=== PATIENT | female | born 1980 | race Caucasian/White ===

== ENCOUNTER → 2019-04-28 | Outpatient (CLI) | payer OTHER ==
[2019-04-28 10:39] LABS: INR 0.9 (<1.2); Prothrombin Time 10.2 sec (9.0-12.0)
[2019-04-28 17:32] LABS: ALT 58 U/L (8-44); AST 41 U/L (13-35); Alkaline Phosphatase 65 U/L (41-126); Bilirubin, Conjugated <0.20 mg/dL (0.20-0.40); Globulin 2.5 g/dL (1.6-3.3); Total Bilirubin 0.3 mg/dL (0.3-1.2)
[2019-04-28 18:05] LABS: Iron Saturation 16.47 (12.00-45.00); Protein, Total 6.9 g/dL (6.2-8.2)
[2019-04-29 10:12] LABS: Albumin 3.99 g/dL (3.80-4.90); Gamma Globulin 1.31 g/dL (0.70-1.50)
[2019-04-29 14:08] LABS: Ceruloplasmin 27.1 mg/dL (20.0-60.0)
== END | disposition home or self-care (01) ==
LOC: LABWHC1 10:16
PROVIDERS: ATTEND Nurse Practitioner
DX: R74.8 Abnormal levels of other serum enzymes (principal)
CPT/HCPCS: 36415; 80076; 82103; 82390; 82728; 83516; 83540; 83550; 84165; 85610; 86038

== ENCOUNTER → 2019-05-11 | Outpatient (CLI) | payer OTHER ==
--- NOTE | 2019-05-11 12:10 | US ---
EXAMINATION TYPE: US abdomen limited DATE OF EXAM: 05/11/2019 COMPARISON: NONE CLINICAL HISTORY: 39-year-old female R74.8 abnormal level of other serum enzymes. Elevated liver enzy mes, patient states no other symptoms. TECHNIQUE: Multiple sonographic images of the right upper quadrant are obtained. FINDINGS: EXAM MEASUREMENTS: Liver Length: 15.0 cm Gallbladder Wall: 0.2 cm CBD: 0.3 cm Right Kidney: 10.7 x 4.8 x 4.7 cm Pancreas: Suboptimal visualization secondary to overlying bowel gas. Liver: No focal lesion seen. Overall homogeneous appearance. Gallbladder: wnl Evidence for sonographic Martell's sign: no CBD: visualized portions wnl, limited by overlying bowel gas Right Kidney: wnl IMPRESSION: Suboptimal visualization of the pancreas. Otherwise, unremarkable sonographic examination right upper quadrant.
== END | disposition home or self-care (01) ==
LOC: RADUSWWP 09:35
PROVIDERS: ATTEND Internal Medicine Gastroenterology
DX: R74.8 Abnormal levels of other serum enzymes (principal)
CPT/HCPCS: 76705

== ENCOUNTER → 2019-07-09 | Outpatient (CLI) | payer OTHER ==
--- NOTE | 2019-07-09 10:01 | US ---
EXAMINATION TYPE: US thyroid st tissue head/neck DATE OF EXAM: 07/09/2019 COMPARISON: NONE CLINICAL HISTORY: E03.9 HYPOTHYROIDISM,E06.3 AUTOIMMUNE THYROIDITIS. Patient on thyroid meds. GLAND SIZE: Right Lobe: 5.4 x 1.3 x 1.3 cm Overall Parenchyma: heterogenous Left Lobe: 6.1 x 1.7 x 1.6 cm Overall Parenchyma: heterogeneous Isthmus Thickness: 0.6 cm NODULES RIGHT: # of nodules measured on right: 0 LEFT: # of nodules measured on left: 0 ISTHMUS: # of nodules measured in the isthmus: 0 Bilateral neck scanned, no evidence of lymphadenopathy. Heterogeneous texture overall. IMPRESSION: Nonspecific. Diffuse glandular heterogeneity without distinct nodule. Correlate with thyroid function testing and physical exam findings.
== END | disposition home or self-care (01) ==
LOC: RADUSWWP 08:50
PROVIDERS: ATTEND Family Medicine
DX: E06.3 Autoimmune thyroiditis (principal)
CPT/HCPCS: 76536

== ENCOUNTER → 2020-06-06 | Outpatient (CLI) | payer OTHER ==
[2020-06-06 13:23] VITALS: BP 114/73; PULSE 88; RESP 18; TEMP 98.4; BMI 33.0
--- NOTE | 2020-06-06 14:05 | P.HPBAR ---
Bariatric H&P - History & Physicial H&P Date: 06/06/20 History & Physicial: Visit/CC: initial visit; possible lap band Patient initial contact: Initial weight: Initial weight in pounds: Height: 5 ft Initial BMI: Last weight: Current weight: 82.1 kg Current weight in pounds: 181.00 Current BMI: 35 [place] body weight (based on NIH guidelines): 49.895 kg Excess body weight loss: The patient is a 40 year-old F who presents for Bariatric Assessment. Patient presents today for initial consultation. She is interesting to having a lap band performed. She has had issues with obesity most relief. Past Medical History Past Medical History: GERD/Reflux, Thyroid Disorder History of Any Multi-Drug Resistant Organisms: None Reported Additional Past Surgical History / Comment(s): (X2); PANNI 2016; breast aggumentation 2016 Past Anesthesia/Blood Transfusion Reactions: No Reported Reaction, Motion Sickness Past Psychological History: Anxiety Smoking Status: Never smoker Surgical - Exam Vital Signs Temp Pulse Resp BP 98.4 F 88 18 114/73 06/06/20 13:11 06/06/20 13:11 06/06/20 13:11 06/06/20 13:11 - General well developed, well nourished, no distress - Eyes PERRL - ENT normal pinna - Neck no masses - Respiratory normal expansion - Cardiovascular Rhythm: regular - Abdomen Abdomen: soft, non tender Bariatric Assessment & Plan Plan: RBC. Patient be scheduled for EGD. She'll follow-up after this has been performed. Once her insurance authorization quadrant of the neck she'll be scheduled for LAP-BAND procedure. Bariatric Checklist Checklist: Plan: Checklist: EGD: 1. Hiatal hernia: 2. H. Pylori: HgbA1c: Vitamin D: Smoking: Primary care physician referral: Dr. Martinez Psychiatry clearance: Cardiology clearance: Sleep study: Diet journal: VTE risk score: VTE risk level: Rehab needs at discharge:
[2020-06-07 01:53] LABS: Folate, Serum 16.8 ng/mL
== END | disposition home or self-care (01) ==
LOC: BARWHC3 12:58
PROVIDERS: ATTEND Surgery
DX: Z46.51 Encounter for fitting and adjustment of gastric lap band (principal); Z98.84 Bariatric surgery status
CPT/HCPCS: 82607; 82746; 84425; 93005; 99211

== ENCOUNTER 2020-07-22 09:05 | Day surgery (SDC) | payer OTHER ==
[2020-07-19 10:33] VITALS: BMI 33.3
[~2020-07-22 09:05] MED LIST: LACTATED RINGERS 1,000 ML IV SCH; LIDOCAINE 1% (10MG/ML) FOR IV START INTRADERMA PRN
[2020-07-22 09:51] VITALS: RESP 16; TEMP 97
[2020-07-22] MEDS ORDERED: PROPOFOL 10 MG/ML 20 ML VIAL IV ONE (09:55)
[2020-07-22] MEDS ORDERED: LIDOCAINE 1% INJ 10MG/ML (20 ML MDV) ONE (09:55)
--- NOTE | 2020-07-22 09:57 | P.GSHP ---
History of Present Illness H&P Date: 07/22/20 Chief Complaint: GERD, morbid obesity This a 40-year-old female who presents today for EGD. She is undergoing workup for bariatric surgery. She's had issues with GERD. Past Medical History Past Medical History: GERD/Reflux, Thyroid Disorder History of Any Multi-Drug Resistant Organisms: None Reported Past Surgical History: Breast Surgery, Section Additional Past Surgical History / Comment(s): (X2); TUMMY TUCK 2016; breast aggumentation 2016 Past Anesthesia/Blood Transfusion Reactions: No Reported Reaction, Motion Sickness Smoking Status: Never smoker - Past Family History Mother Family Medical History: No Reported History Medications and Allergies Home Medications Medication Instructions Recorded Confirmed Type Escitalopram [Lexapro] 10 mg PO DAILY 06/06/20 07/19/20 History Levothyroxine Sodium [Levoxyl] 150 mcg PO DAILY 06/06/20 07/19/20 History Loratadine [Claritin] 10 mg PO DAILY 06/06/20 07/19/20 History Allergies Allergy/AdvReac Type Severity Reaction Status Date / Time No Known Allergies Allergy Verified 07/22/20 09:36 Surgical - Exam Vital Signs Temp Pulse Resp BP Pulse Ox 97.0 F L 76 16 110/71 98 07/22/20 09:30 07/22/20 09:30 07/22/20 09:30 07/22/20 09:30 07/22/20 09:30 - General well developed, well nourished, no distress - Eyes PERRL - ENT normal pinna - Neck no masses - Respiratory normal expansion - Cardiovascular Rhythm: regular - Abdomen Abdomen: soft, non tender Assessment and Plan Assessment: Morbid Obesity GERD. We'll perform EGD.
--- NOTE | 2020-07-22 10:05 | P.OP ---
Date of Procedure: 07/22/20 Preoperative Diagnosis: Morbid obesity . GERD Postoperative Diagnosis: Antral gastritis Procedure(s) Performed: EGD Anesthesia: MAC Surgeon: Jordi Tse Pathology: other (Antrum) Condition: stable Disposition: PACU Description of Procedure: The patient's placed on the endoscopy table in the lateral position. She received IV sedation. The gastroscope placed oropharynx and passed into the esophagus into the stomach. Scope was then placed through the pylorus. First and second portion of the duodenum appeared normal. Scope was then brought back the antrum and this was mildly inflamed. A biopsies performed. The scope was then retroflexed and the remainder of the stomach appeared normal. The GE junction was at 47 is. The distal esophagus appeared normal. The proximal esophagus appeared normal. Scope was withdrawn for patient.
[2020-07-22 10:30] VITALS: BP 102/71; PULSE 69
== END 2020-07-22 10:49 | disposition home or self-care (01) ==
LOC: ORWHC2ENDO 09:05
PROVIDERS: ATTEND Surgery
DX: K29.50 Unspecified chronic gastritis without bleeding (principal); K21.9 Gastro-esophageal reflux disease without esophagitis; E66.01 Morbid (severe) obesity due to excess calories; Z68.34 Body mass index [BMI] 34.0-34.9, adult; E07.9 Disorder of thyroid, unspecified; Z98.891 History of uterine scar from previous surgery; Z98.890 Other specified postprocedural states; Z79.890 Hormone replacement therapy; Z79.899 Other long term (current) drug therapy
CPT/HCPCS: 81025; 88305; 43239; J2001; J2704

== ENCOUNTER → 2020-10-10 | Outpatient (CLI) | payer OTHER ==
[2020-10-10 09:38] VITALS: BMI 37.2
== END | disposition home or self-care (01) ==
LOC: BARWHC3 08:56
PROVIDERS: ATTEND Surgery
DX: E66.01 Morbid (severe) obesity due to excess calories (principal); Z71.3 Dietary counseling and surveillance; Z68.37 Body mass index [BMI] 37.0-37.9, adult
CPT/HCPCS: 97804

== ENCOUNTER → 2020-10-24 | Outpatient (CLI) | payer OTHER ==
--- NOTE | 2020-10-24 15:42 | P.HPBAR ---
Bariatric H&P - History & Physicial H&P Date: 10/24/20 History & Physicial: Visit/CC: presurgical visit Patient initial contact: Initial weight: Initial weight in pounds: Height: 5 ft 0.5 in Initial BMI: Last weight: Current weight: 87.997 kg Current weight in pounds: 194.00 Current BMI: 37.3 [place] body weight (based on NIH guidelines): 46.493 kg Excess body weight loss: The patient is a 40 year-old F who presents for Bariatric Assessment. Patient presents today for presurgical consultation. Patient will be authorized for LAP-BAND procedure. Her BMI is 38. Past Medical History Past Medical History: GERD/Reflux, Thyroid Disorder History of Any Multi-Drug Resistant Organisms: None Reported Past Surgical History: Breast Surgery, Section Additional Past Surgical History / Comment(s): (X2); TUMMY TUCK 2015; breast aggumentation 2015 Past Anesthesia/Blood Transfusion Reactions: No Reported Reaction, Motion Sickn ess Past Psychological History: Anxiety Smoking Status: Never smoker Past Alcohol Use History: None Reported Past Drug Use History: None Reported - Past Family History Mother Family Medical History: No Reported History Surgical - Exam Vital Signs Temp Pulse Resp BP 98 F 96 18 109/70 10/24/20 13:16 10/24/20 13:16 10/24/20 13:16 10/24/20 13:16 - General well developed, well nourished - Eyes PERRL - ENT normal pinna - Neck no masses - Respiratory normal expansion - Cardiovascular Rhythm: regular - Abdomen Abdomen: soft, non tender Bariatric Assessment & Plan Plan: Morbid obesity patient will be off service for LAP-BAND procedure. Bariatric Checklist Checklist: Plan: Checklist: EGD: 1. Hiatal hernia: 2. H. Pylori: HgbA1c: Vitamin D: Smoking: Primary care physician referral: Dr. Martinez Psychiatry clearance: Cardiology clearance: Sleep study: Diet journal: VTE risk score: VTE risk level: Rehab needs at discharge:
== END | disposition home or self-care (01) ==
CPT/HCPCS: 99211

== ENCOUNTER → 2021-01-18 | Outpatient (CLI) | payer OTHER ==
--- NOTE | 2021-01-18 17:13 | CONS ---
CONSULTATION DATE OF SERVICE: 40-year-old lady has been evaluated in the sleep center for possible obstructive sleep apnea-hypopnea syndrome. HISTORY OF PRESENT ILLNESS/SLEEP WAKE EVALUATION: SLEEP SCHEDULE: Patient's usual sleep schedule from midnight until 6 a.m. FALLING ASLEEP: She does have problems with falling asleep. She has a TV set in bedroom. DURING SLEEP: She usually sleeps on the back position. According to her , she has loud snoring and witnessed episodes of stopped breathing during sleep. Positive history of sleep talking, sweating, panic attacks. She wakes up from sleep 2 times with nocturia. Positive history of grinding teeth. DURING THE DAY/SLEEP WAKE EVALUATION: During the day, patient feels sleepiness has problems with concentration irritability, depression and anxiety. [place] Sleepiness Scale significantly increased to 15. No history of hypnagogic hallucinations, sleep paralysis or cataplexy. PAST MEDICAL HISTORY: Positive for headaches, sinus problems, allergy, acid reflux, hypothyroidism, anxiety. PAST SURGICAL HISTORY: Rhinoplasty, sinuses surgery. MEDICATIONS: Synthroid 175 mcg once a day, Kate over the counter, Lexapro 10 mg once a day. SOCIAL HISTORY: Negative for smoking or using alcohol. FAMILY HISTORY: Positive for sleep apnea. PHYSICAL EXAMINATION: GENERAL: A 40-year-old lady without distress. BP 119/82, HR 82, RR 12, height 5 feet 2-1/2 inches, weight 191.4. Body mass index 34.3, temperature 97.6. Oxygen saturation at room air 99%. HEENT: PERRLA, EOMI. Oropharynx low position of soft palate. Mallampati 3. NECK: 14.5 inches in circumference. Neck supple, no JVD. Thyroid is not palpable. LUNGS: Clear to percussion and to auscultation. Good air exchange. No wheezing or rhonchi. HEART: S1, S2 regular. No murmurs, gallops, or rubs. ABDOMEN: Slightly obese. Soft and nontender. Bowel sounds are present. No organomegaly appreciated. EXTREMITIES: No clubbing or cyanosis. COMPUTER AIDED DESIGN OPERATOR: Awake, alert, and oriented X3. Cranial nerves 2 to 7 intact. There is no fasciculation or atrophy. noted. No focal deficits observed. IMPRESSION: 1. Loud snoring, witnessed episodes of stopped breathing during sleep, multiple awakenings from sleep, low position of soft palate, Mallampati 3, excessive daytime sleepiness. [place] Sleepiness Scale is 15. Obstructive sleep apnea-hypopnea syndrome. 2. Obesity, BMI 34.3. 3. Headaches. 4. History of sinus problems, status post sinus surgery. 5. Status post rhinoplasty. 6. Acid reflux. 7. Hypothyroidism. 8. Allergies. 9. History of anxiety. 10.Status post . PLAN: 1. Polysomnography for evaluation of patient's breathing during sleep. 2. Following plan after reviewing results of sleep study. 3. Watching and losing weight. 4. Sleep hygiene with regular time in bed for 7-1/2 or 8 hours. 5. No driving if feeling sleepiness. 6. I will see the patient for follow up visit to explain results of testing and following plan. Thank you very much for referring this patient for consultation. Sincerely, Enrique Vargas MD, PhD, FAASM Diplomat of [place] [employer] [place] [employer] [facility] [place] MMODL / ANDRZEJN: [id number] /
== END ==
LOC: SLEEP 11:19
PROVIDERS: ATTEND Internal Medicine
DX: G47.33 Obstructive sleep apnea (adult) (pediatric) (principal); E66.9 Obesity, unspecified; R51.9 Headache, unspecified; K21.9 Gastro-esophageal reflux disease without esophagitis; E03.9 Hypothyroidism, unspecified; F41.9 Anxiety disorder, unspecified; Z68.34 Body mass index [BMI] 34.0-34.9, adult; T78.40XA Allergy, unspecified, initial encounter; Z98.890 Other specified postprocedural states; Z87.09 Personal history of other diseases of the respiratory system; Z79.899 Other long term (current) drug therapy
CPT/HCPCS: 99211

== ENCOUNTER → 2021-03-20 | Outpatient (CLI) | payer BC, OTHER ==
[2021-03-20 13:59] VITALS: BP 117/86; PULSE 93; RESP 18; TEMP 98.3; BMI 38.0
--- NOTE | 2021-03-20 15:01 | P.HPBAR ---
Bariatric H&P - History & Physicial H&P Date: 03/20/21 History & Physicial: Visit/CC: presurgical / follow up Patient initial contact: Initial weight: Initial weight in pounds: Height: 5 ft 0.5 in Initial BMI: Last weight: Current weight: 89.811 kg Current weight in pounds: 198.00 Current BMI: 38.0 [place] body weight (based on NIH guidelines): 46.493 kg Excess body weight loss: The patient is a 41 year-old F who presents for Bariatric Assessment. She presents today for presurgical consultation. She is scheduled for LAP-BAND next week. She has Percent band. She is morbidly obese. BMI. His 38.. Past Medical History Past Medical History: GERD/Reflux, Thyroid Disorder History of Any Multi-Drug Resistant Organisms: None Reported Past Surgical History: Breast Surgery, Section Additional Past Surgical History / Comment(s): (X2); TUMMY TUCK 2015; breast aggumentation 2015 Past Anesthesia/Blood Transfusion Reactions: No Reported Reaction, Motion Sickness Smoking Status: Never smoker - Past Family History Mother Family Medical History: No Reported History Surgical - Exam Vital Signs Temp Pulse Resp BP 98.3 F 93 18 117/86 03/20/21 13:56 03/20/21 13:56 03/20/21 13:56 03/20/21 13:56 - General well developed, well nourished, no distress - Eyes PERRL - ENT normal pinna, normal nares - Neck no masses - Respiratory normal expansion - Cardiovascular Rhythm: regular - Abdomen Abdomen: soft, non tender Bariatric Assessment & Plan Plan: Patient's has an excellent understanding of LAP-BAND procedure. Her BMI is 38. Her questions were answered. Bariatric Checklist Checklist: Plan: Checklist: EGD: 1. Hiatal hernia: 2. H. Pylori: HgbA1c: Vitamin D: Smoking: Primary care physician referral: Dr. Martinez Psychiatry clearance: Cardiology clearance: Sleep study: Diet journal: VTE risk score: VTE risk level: Rehab needs at discharge:
[2021-03-20 15:06] LABS: Basophils # (A) 0.1 k/uL (0-0.2); Basophils % (A) 1 %; Eosinophils # (A) 0.4 k/uL (0-0.7); Eosinophils % (A) 4 %; HCT 42.1 % (34.0-46.0); HGB 13.6 gm/dL (11.4-16.0); Lymphocytes # (A) 1.7 k/uL (1.0-4.8); Lymphocytes % (A) 17 %; MCH 25.8 pg (25.0-35.0); MCHC 32.3 g/dL (31.0-37.0); MCV 79.9 fL (80.0-100.0); Mean Platelet Volume 6.5; Monocytes # (A) 0.5 k/uL (0-1.0); Monocytes % (A) 5 %; Neutrophils # (A) 6.9 k/uL (1.3-7.7); Neutrophils % (A) 72 %; Platelet Count 418 k/uL (150-450); RBC 5.27 m/uL (3.80-5.40); RDW 14.8 % (11.5-15.5); WBC 9.6 k/uL (3.8-10.6)
[2021-03-20 20:13] LABS: African American GFR (CKD) 106.1 (60.0-200.0); Albumin 4.6 g/dL (3.80-4.90); Albumin/Globulin Ratio 1.53 (1.60-3.17); Anion Gap 7.3 mmol/L (4.00-12.00); Calcium 9.3 mg/dL (8.7-10.3); Carbon Dioxide 29.7 mmol/L (21.6-31.8); Non-African American GFR(CKD) 91.6 (60.0-200.0); Potassium 4.6 mmol/L (3.5-5.5); Total Bilirubin 0.3 mg/dL (0.3-1.2); Total Protein 7.6 g/dL (6.2-8.2)
== END ==
LOC: BARWHC3 13:34
PROVIDERS: ATTEND Surgery
DX: Z01.818 Encounter for other preprocedural examination (principal); E66.01 Morbid (severe) obesity due to excess calories; Z68.38 Body mass index [BMI] 38.0-38.9, adult
CPT/HCPCS: 80053; 85025; 99211

== ENCOUNTER → 2021-03-20 | Outpatient (CLI) | payer BC, OTHER ==
[2021-03-20 20:21] LABS: T4, Free (Free Thyroxine) 1.2 ng/dL (0.80-1.80)
== END | disposition home or self-care (01) ==
LOC: LABWHC1 14:10
PROVIDERS: ATTEND Family Medicine
DX: E03.9 Hypothyroidism, unspecified (principal)
CPT/HCPCS: 36415; 84439; 84443; 84480

== ENCOUNTER 2021-03-27 07:12 | Day surgery (SDC) | payer BC, OTHER ==
[2021-03-22 15:44] VITALS: BMI 39.0
[~2021-03-27 07:12] MED LIST changes: +DEXAMETHASONE SOD PHOSPHATE 4 MG/ML 1 ML VIAL IV ONE; +ENOXAPARIN 40 MG/0.4 ML SYRINGE SQ PRN; +HYDROmorphone 0.5 MG/0.5 ML SYRINGE IVP PRN; -LACTATED RINGERS 1,000 ML IV SCH; +MIDAZOLAM 2 MG/2 ML VIAL IV PRN; +ONDANSETRON 4 MG/2 ML VIAL IVP ONE
[2021-03-27] MEDS: LACTATED RINGERS 1,000 ML IV SCH (07:40)
--- NOTE | 2021-03-27 08:42 | P.GSHP ---
History of Present Illness H&P Date: 03/27/21 Chief Complaint: Morbid obesity, BMI 38 This is a 41-year-old female who presents today for laparoscopic adjustable gastric band. Patient has had lifetime problems obesity. Patient with the risk and benefits of the procedure. She is aware the risk of possible gastric inju ry. Past Medical History Past Medical History: Skin Disorder, Sleep Apnea/CPAP/BIPAP, Thyroid Disorder Additional Past Medical History / Comment(s): eczema, History of Any Multi-Drug Resistant Organisms: None Reported Past Surgical History: Breast Surgery, Section Additional Past Surgical History / Comment(s): (X2); TUMMY TUCK, breast aggumentation , rhinoplasty Past Anesthesia/Blood Transfusion Reactions: Motion Sickness Smoking Status: Never smoker - Past Family History Mother Family Medical History: No Reported History Medications and Allergies Home Medications Medication Instructions Recorded Confirmed Type Levothyroxine Sodium [Levoxyl] 150 mcg PO DAILY 06/06/20 03/22/21 History Loratadine [Claritin] 10 mg PO DAILY 06/06/20 03/22/21 History Escitalopram [Lexapro] 20 mg PO DAILY 03/22/21 03/22/21 History levonorgestreL [Mirena] 1 each IY DIRECTED 03/22/21 03/22/21 History Allergies Allergy/AdvReac Type Severity Reaction Status Date / Time No Known Allergies Allergy Verified 03/27/21 07:33 Surgical - Exam Vital Signs Temp Pulse Resp BP Pulse Ox 97.3 F L 87 16 101/63 96 03/27/21 07:43 03/27/21 07:43 03/27/21 07:43 03/27/21 07:43 03/27/21 07:43 - General well developed, well nourished, no distress - Eyes PERRL - ENT normal pinna - Neck no masses - Respiratory normal expansion - Cardiovascular Rhythm: regular - Abdomen Abdomen: soft, non tender Assessment and Plan Assessment: Morbid obesity, BMI 38. We will perform LAP-BAND procedure.
[2021-03-27] MEDS ORDERED: MIDAZOLAM 2 MG/2 ML VIAL ONE (09:05)
[2021-03-27] MEDS ORDERED: NEOSTIGMINE 1 MG/ML 10 ML VIAL ONE (09:05)
[2021-03-27] MEDS ORDERED: PROPOFOL 10 MG/ML 20 ML VIAL IV ONE (09:05)
[2021-03-27] MEDS ORDERED: HYDROmorphone (PF) 1 MG/ML ONE (09:05)
[2021-03-27] MEDS ORDERED: KETOROLAC 15 MG/ML 1 ML VIAL ONE (09:05)
[2021-03-27] MEDS ORDERED: SUCCINYLCHOLINE CHLORIDE 100 MG/5 ML SYR IV ONE (09:05)
[2021-03-27] MEDS ORDERED: fentaNYL (PF) 50 MCG/ML 2 ML AMP ONE (09:05)
[2021-03-27] MEDS ORDERED: ROCURONIUM 10 MG/ML (5 ML VIAL) IV ONE (09:05)
[2021-03-27] MEDS ORDERED: LIDOCAINE 1% INJ 10MG/ML (20 ML MDV) ONE (09:05)
[2021-03-27] MEDS ORDERED: GLYCOPYRROLATE 0.2 MG/ML 2 ML VIAL ONE (09:05)
[2021-03-27] MEDS ORDERED: BUPIVACAINE (PF) 0.25% 30 ML VIAL SQ ONE ×2 (09:25→09:44)
[2021-03-27] MEDS ORDERED: LACTATED RINGERS 1,000 ML IV ONE (09:49)
[2021-03-27] MEDS ORDERED: SIMETHICONE 40 MG/0.6 ML DROPS 2,000 MG/30 ML BOTTLE PO PRN (10:26)
[2021-03-27] MEDS ORDERED: HYOSCYAMINE ORAL DROPS 1.875 MG/15 ML BOTTLE PO PRN (10:26)
[2021-03-27] MEDS ORDERED: diphenhydrAMINE 50 MG/ML 1 ML VIAL IVP PRN (10:26)
[2021-03-27] MEDS ORDERED: NALOXONE 0.4 MG/ML 1 ML VIAL IV PRN (10:26)
[2021-03-27] MEDS ORDERED: HYDROmorphone 1 MG/ML 1 ML SYRINGE IVP PRN (10:26)
--- NOTE | 2021-03-27 10:26 | P.OP ---
Date of Procedure: 03/27/21 Preoperative Diagnosis: Morbid obesity, BMI 38 Postoperative Diagnosis: Morbid obesity Procedure(s) Performed: LAP-BAND procedure Anesthesia: NA Surgeon: Jordi Tse Estimated Blood Loss (ml): 10 Pathology: none sent Condition: stable Disposition: PACU Description of Procedure: The patient's placed on the operative table in the supine position. She received general anesthesia. Her abdomen was prepped in the sterile fashion. She was placed in dorsal 5 position. Her abdomen was prepped and draped in usual sterile fashion. The skin sites were anesthetized 1% local Xylocaine. Then using a 11 blade a left. Local skin incision was made then using a 5 mm trocar direct vision the pleural cavity is entered. On entering the peritoneal cavity insufflated and then the laparoscope placed back into the pleural cavity. X a 5 mm trochars placed in the right epigastric right lateral, left lateral and a 15 mm trochars placed in the left epigastric position. Using the liver retractor the left lateral lobe of liver was retracted. And then the camera was placed in the left epigastric port site. Using blunt dissection a retrogastric tunnel was created. Care was taken to identify and preserve the gastric wall. Next the LAP-BAND device is placed into the pleural cavity. An AP standard LAP- BAND device is placed and then the LAP-BAND was drawn around the stomach in the retrogastric position. The buckle was then closed. And then the anterior gastric wall plication was performed using 2-0 Ethibond suture. The tied knot device was used to secure the knots. At this point the cavity was then brought out through the 15 mm trocar site. The trochars withdrawn. The PEG tube was attached to the port site. The port was secured with 3-0 Nurolon suture. The port was then flushed with saline. The skin was then closed interrupted 3-0 Monocryl at the trocar sites. Patient top she will was sent to recovery room in stable condition.
--- NOTE | 2021-03-27 15:26 | FL ---
EXAMINATION TYPE: FL UGI DATE OF EXAM: 03/27/2021 COMPARISON: None HISTORY: Recent Lap band placement TECHNIQUE: Single contrast technique Isovue FINDINGS: Fluoroscopy time 42 seconds Images:35 Overhead radiographs and fluoroscopic imaging is performed contrast passes through the lap band witho ut significant hesitancy. And position appears normal. No extravasation of contrast is evident. Small amount of free air is under the diaphragms. IMPRESSION: 1. No extravasation of contrast post lap band. Mild hesitancy passing through the lap band.
[2021-03-27] MEDS: HYDROcodone/APAP 15 ML SOLUTION PO PRN (16:02)
[2021-03-27] MEDS: 0.9% NACL WITH KCL 20 MEQ/L 1,000 ML IV SCH ×2 (16:03→23:30)
[2021-03-27] MEDS: ALBUTEROL NEBULIZED 2.5 MG/3 ML INHALATION SCH ×2 (16:27→21:14)
[2021-03-27] MEDS: ESCITALOPRAM 20 MG TAB PO SCH (17:16)
--- NOTE | 2021-03-27 17:58 | P.CONS ---
History of Present Illness - Reason for Consult Hypotension - History of Present Illness Patient is a pleasant 41-year-old female admitted for lap band surgery. Patient successfully underwent surgery patient doesn't have any nausea vomiting abdominal pain is well controlled with present pain medications. Patient did pass gas. Doesn't have a Berry catheter at this time REVIEW OF SYSTEMS: CONSTITUTIONAL: No fever, no malaise, no fatigue. HEENT: No recent visual problems or hearing problems. Denied any sore throat. CARDIOVASCULAR: No chest pain, orthopnea, PND, no palpitations, no syncope. PULMONARY: No shortness of breath, no cough, no hemoptysis. GASTROINTESTINAL: No diarrhea, no nausea, no vomiting, no abdominal pain. NEUROLOGICAL: No headaches, no weakness, no numbness. HEMATOLOGICAL: Denies any bleeding or petechiae. GENITOURINARY: Denies any burning micturition, frequency, or urgency. MUSCULOSKELETAL/RHEUMATOLOGICAL: Denies any joint pain, swelling, or any muscle pain. ENDOCRINE: Denies any polyuria or polydipsia. The rest of the 14-point review of systems is negative. PHYSICAL EXAMINATION: GENERAL: The patient is alert and oriented x3, not in any acute distress. Well developed, well nourished. HEENT: Pupils are round and equally reacting to light. EOMI. No scleral icterus. No conjunctival pallor. Normocephalic, atraumatic. No pharyngeal erythema. No thyromegaly. CARDIOVASCULAR: S1 and S2 present. No murmurs, rubs, or gallops. PULMONARY: Chest is clear to auscultation, no wheezing or crackles. ABDOMEN: Soft,nondistended, normoactive bowel sounds. No palpable organomegaly. MUSCULOSKELETAL: No joint swelling or deformity. EXTREMITIES: No cyanosis, clubbing, or pedal edema. NEUROLOGICAL: Gross neurological examination did not reveal any focal deficits. SKIN: No rashes. Assessment and plan -Hyperthyroidism continue with levothyroxine - depression continue with Lexapro -Obesity patient had a LAP-BAND surgery pain is well controlled at this time -Mild perioperative hypotension patient is receiving IV fluids DVT prophylaxis: Lovenox Past Medical History Past Medical History: Skin Disorder, Sleep Apnea/CPAP/BIPAP, Thyroid Disorder Additional Past Medical History / Comment(s): eczema, History of Any Multi-Drug Resistant Organisms: None Reported Past Surgical History: Breast Surgery, Section Additional Past Surgical History / Comment(s): (X2); TUMMY TUCK, breast aggumentation , rhinoplasty Past Anesthesia/Blood Transfusion Reactions: Motion Sickness Past Psychological History: Anxiety Smoking Status: Never smoker Past Alcohol Use History: None Reported Past Drug Use History: None Reported - Past Family History Mother Family Medical History: No Reported History Medications and Allergies Home Medications Medication Instructions Recorded Confirmed Type Levothyroxine Sodium [Levoxyl] 150 mcg PO DAILY 06/06/20 03/22/21 History Loratadine [Claritin] 10 mg PO DAILY 06/06/20 03/22/21 History Escitalopram [Lexapro] 20 mg PO DAILY 03/22/21 03/22/21 History levonorgestreL [Mirena] 1 each IY DIRECTED 03/22/21 03/22/21 History Allergies Allergy/AdvReac Type Severity Reaction Status Date / Time No Known Allergies Allergy Verified 03/27/21 07:33 Physical Exam Vitals: Vital Signs Temp Pulse Pulse Resp BP BP Pulse Ox 03/27/21 17:01 97 03/27/21 14:00 98.2 F 87 17 93/66 95 03/27/21 12:30 97.7 F 93 18 115/75 96 03/27/21 12:00 88 16 104/60 96 03/27/21 11:30 91 18 96/60 96 03/27/21 11:05 92 18 103/62 98 03/27/21 10:50 87 16 109/72 100 03/27/21 10:35 84 16 116/70 99 03/27/21 10:20 97.7 F 87 14 116/69 98 03/27/21 07:43 97.3 F L 87 16 101/63 96 Intake and Output 03/27/21 03/27/21 03/27/21 06:59 14:59 22:59 Intake Total 1850 Output Total 10 Balance 1840 Intake: IV 1850 Output: Estimated Blood Loss 10 Other: Weight 88.9 kg
[2021-03-27] MEDS ORDERED: BUTALB/APAP/CAFF 50-325-40MG TAB PO PRN (20:23)
[2021-03-27] MEDS: ENOXAPARIN 40 MG/0.4 ML SYRINGE SQ SCH (20:56)
[2021-03-28] MEDS: LACTATED RINGERS 1,000 ML IV SCH (01:50)
[2021-03-28] MEDS: 0.9% NACL WITH KCL 20 MEQ/L 1,000 ML IV SCH (04:38)
[2021-03-28] MEDS ORDERED: LEVOTHYROXINE 75 MCG TAB PO SCH (06:30)
[2021-03-28] MEDS: HYDROcodone/APAP 15 ML SOLUTION PO PRN (08:20)
[2021-03-28] MEDS: ENOXAPARIN 40 MG/0.4 ML SYRINGE SQ SCH (08:20)
[2021-03-28] MEDS: ESCITALOPRAM 20 MG TAB PO SCH (08:20)
[2021-03-28] MEDS: ALBUTEROL NEBULIZED 2.5 MG/3 ML INHALATION SCH ×2 (08:21→11:58)
[2021-03-28 08:45] VITALS: BP 112/69; PULSE 99; RESP 18; TEMP 98.2
[2021-03-28] MEDS ORDERED: PANTOPRAZOLE 40 MG/10 ML VIAL IV SCH (09:00)
[2021-03-28 11:06] LABS: Basophils # (A) 0.02 X 10*3/uL (0.00-0.10); Basophils % (A) 0.2 %; Eosinophils # (A) 0.09 X 10*3/uL (0.04-0.35); HCT 37.1 % (37.2-46.3); HGB 11.6 g/dL (12.0-15.0); Lymphocytes # (A) 2.48 X 10*3/uL (0.90-5.00); Lymphocytes % (A) 26.8 %; MCH 24.8 pg (27.0-32.0); MCHC 31.3 g/dL (32.0-37.0); MCV 79.4 fL (80.0-97.0); Mean Platelet Volume 9.9 fL (9.5-12.2); Monocytes % (A) 6.5 %; Neutrophils # (A) 6.06 X 10*3/uL (1.80-7.70); Neutrophils % (A) 65.3 %; Platelet Count 332 X 10*3/uL (140-440); RBC 4.67 X 10*6/uL (4.10-5.20); RDW 15.1 % (11.5-14.5); WBC 9.27 X 10*3/uL (4.50-10.00)
--- NOTE | 2021-03-28 12:29 | P.DS ---
Providers Expected date of discharge: 03/28/21 Attending physician: Jordi Tse Consults: 03/27/21 10:26 Consult Physician Routine Consulting Provider: Henry Yo Consult Reason/Comments: medical management Do you want consulting provider notified?: Yes Primary care physician: Petra Martinez Hospital Course: Discharge diagnosis 1. Morbid obesity status post lap band procedure Hospital course This is a 41-year-old female with history of morbid obesity. She is status post lap band procedure. She tolerated procedure well. Upper GI showed mild hesitancy passing to the lap band. She is tolerating bariatric clear liquid diet. Patient's pain is controlled. She is afebrile. She is tolerating diet. She is up and ambulating. She is stable for discharge. Please refer to chart for any further details. Physician Group Manager note has been reviewed by physician. Signing provider agrees with the documented findings, assessment, and plan of care. Patient Condition at Discharge: Stable Plan - Discharge Summary Discharge Rx Participant: Yes New Discharge Prescriptions: New HYDROcodone/APAP [[place] Elixir 7.5-325Mg/15Ml] 15 ml PO Q6HR PRN 2 Days #90 ml PRN Reason: Pain Simethicone 40 mg/0.6 ml Drops [Mylicon Drops] 40 mg PO Q6HR PRN ml PRN Reason: Bloating Continue Loratadine [Claritin] 10 mg PO DAILY Levothyroxine Sodium [Levoxyl] 150 mcg PO DAILY Escitalopram [Lexapro] 20 mg PO DAILY levonorgestreL [Mirena] 1 each IY DIRECTED Discharge Medication List Levothyroxine Sodium [Levoxyl] 150 mcg PO DAILY 06/06/20 [History] Loratadine [Claritin] 10 mg PO DAILY 06/06/20 [History] Escitalopram [Lexapro] 20 mg PO DAILY 03/22/21 [History] levonorgestreL [Mirena] 1 each IY DIRECTED 03/22/21 [History] HYDROcodone/APAP [[place] Elixir 7.5-325Mg/15Ml] 15 ml PO Q6HR PRN 2 Days #90 ml 03/28/21 [Rx] Simethicone 40 mg/0.6 ml Drops [Mylicon Drops] 40 mg PO Q6HR PRN ml 03/28/21 [Rx] Follow up Appointment(s)/Referral(s): Jordi Tse MD [STAFF PHYSICIAN] - 04/03/21 1:00 pm Activity/Diet/Wound Care/Special Instructions: post-op appt at the bariatric center No driving while taking [place] No lifting over 10 pounds You may shower. No soaking or tub baths for 2 weeks Very light activity until you are reevaluated at your follow up appointment with your surgeon Discharge Disposition: HOME SELF-CARE
[2021-03-28 14:03] LABS: African American GFR (CKD) 131.2 (60.0-200.0); Anion Gap 6.6 mmol/L (4.00-12.00); Calcium 8.4 mg/dL (8.7-10.3); Carbon Dioxide 24.4 mmol/L (21.6-31.8); Non-African American GFR(CKD) 113.2 (60.0-200.0); Phosphorus 2.6 mg/dL (2.4-5.1); Potassium 4.1 mmol/L (3.5-5.5)
--- NOTE | 2021-03-28 14:14 | P.PN ---
Subjective Progress Note Date: 03/28/21 Patient is a pleasant 41-year-old female admitted for lap band surgery. Patient successfully underwent surgery patient doesn't have any nausea vomiting abdominal pain is well controlled with present pain medications. Patient did pass gas. Doesn't have a Berry catheter at this time 03/28/2021 Patient is evaluated at the bedside today post op day #1 lap band. Patient denies any chest pain, cough, SOB. She has mild abdominal pain, controlled with current pain medications. Patient states that she is ambulating, using her incentive spirometer. Pt reports that she is passing gas, denies nausea/vomiting . She states that she is tolerating a clear liquid diet. Patient is discharged today from surgical services with a follow up. Patient denies any needs today from medical services. BP is stable today at 101/63. Thank you kindly for this consultation. REVIEW OF SYSTEMS: CONSTITUTIONAL: No fever, no malaise, no fatigue. HEENT: No recent visual problems or hearing problems. Denied any sore throat. CARDIOVASCULAR: No chest pain, orthopnea, PND, no palpitations, no syncope. PULMONARY: No shortness of breath, no cough, no hemoptysis. GASTROINTESTINAL: No diarrhea, no nausea, no vomiting, no abdominal pain. NEUROLOGICAL: No headaches, no weakness, no numbness. HEMATOLOGICAL: Denies any bleeding or petechiae. GENITOURINARY: Denies any burning micturition, frequency, or urgency. MUSCULOSKELETAL/RHEUMATOLOGICAL: Denies any joint pain, swelling, or any muscle pain. ENDOCRINE: Denies any polyuria or polydipsia. PHYSICAL EXAMINATION: GENERAL: The patient is alert and oriented x3, not in any acute distress. Well developed, well nourished. HEENT: Pupils are round and equally reacting to light. EOMI. No scleral icterus. No conjunctival pallor. Normocephalic, atraumatic. No pharyngeal erythema. No thyromegaly. CARDIOVASCULAR: S1 and S2 present. No murmurs, rubs, or gallops. PULMONARY: Chest is clear to auscultation, no wheezing or crackles. ABDOMEN: Soft,nondistended, normoactive bowel sounds. No palpable organomegaly. MUSCULOSKELETAL: No joint swelling or deformity. EXTREMITIES: No cyanosis, clubbing, or pedal edema. NEUROLOGICAL: Gross neurological examination did not reveal any focal deficits. SKIN: No rashes. Assessment and plan -Hyperthyroidism, continue with levothyroxine - depression continue with Lexapro -Obesity patient had a LAP-BAND surgery pain is well controlled at this time -Mild perioperative hypotension, improved with hydration DVT prophylaxis: Lovenox Objective - Vital Signs Vital signs: Vital Signs Temp 98.2 F 03/28/21 08:00 Pulse 99 03/28/21 08:20 Resp 18 03/28/21 08:20 BP 112/69 03/28/21 08:00 Pulse Ox 97 03/28/21 08:21 Intake & Output 03/27/21 03/28/21 03/28/21 18:59 06:59 18:59 Intake Total 1850 Output Total 10 Balance 1840 Weight 88.9 kg Intake: IV 1850 Output: Estimated Blood Loss 10 Other: # Voids 3 - Labs CBC & Chem 7: 03/28/21 07:43 03/28/21 07:43 Labs: Abnormal Lab Results - Last 24 Hours (Table) 03/28/21 03/28/21 Range/Units 07:43 07:43 Hgb 11.6 L (12.0-15.0) g/dL Hct 37.1 L (37.2-46.3) % MCV 79.4 L (80.0-97.0) fL MCH 24.8 L (27.0-32.0) pg MCHC 31.3 L (32.0-37.0) g/dL RDW 15.1 H (11.5-14.5) % Calcium 8.4 L (8.7-10.3) mg/dL
[2021-03-29] MEDS ORDERED: bisacodyL 5 MG TABLET.DR PO PRN (08:00)
== END 2021-03-28 15:05 | disposition home or self-care (01) ==
LOC: OR 07:12 → 4SSUR 10:20 → OR 03-28 15:05
PROVIDERS: ATTEND Surgery
DX: E66.01 Morbid (severe) obesity due to excess calories (principal); Z68.38 Body mass index [BMI] 38.0-38.9, adult; I95.9 Hypotension, unspecified; G47.30 Sleep apnea, unspecified; E07.9 Disorder of thyroid, unspecified; L30.9 Dermatitis, unspecified; Z98.890 Other specified postprocedural states; Z98.891 History of uterine scar from previous surgery; Z79.890 Hormone replacement therapy; Z79.899 Other long term (current) drug therapy; Z79.3 Long term (current) use of hormonal contraceptives; E05.90 Thyrotoxicosis, unspecified without thyrotoxic crisis or storm; F32.9 Major depressive disorder, single episode, unspecified; F41.9 Anxiety disorder, unspecified
CPT/HCPCS: 94760; 97161; 97165; 81025; 80051; 82310; 82565; 83735; 84100; 84520; 85025; 74240; 43770; J1100; J0690; J2405; J1650 ×2; C9113; Q9967

== ENCOUNTER → 2021-04-03 | Outpatient (CLI) | payer BC, OTHER ==
[2021-04-03 14:29] VITALS: BP 108/78; PULSE 105; RESP 18; TEMP 97.5; BMI 37.7
--- NOTE | 2021-04-03 14:42 | P.HPBAR ---
Bariatric H&P - History & Physicial H&P Date: 04/03/21 History & Physicial: Visit/CC: follow up Patient initial contact: Initial weight: Initial weight in pounds: Height: 5 ft Initial BMI: Last weight: Current weight: 87.543 kg Current weight in pounds: 193.00 Current BMI: 37.7 [place] body weight (based on NIH guidelines): 45.359 kg Excess body weight loss: The patient is a 41 year-old F who presents for Bariatric Assessment. She presents today for postop LAP-BAND follow-up. She is doing well. She has minimal complaints of pain. Past Medical History Past Medical History: Skin Disorder, Sleep Apnea/CPAP/BIPAP, Thyroid Disorder History of Any Multi-Drug Resistant Organisms: None Reported Past Surgical History: Bariatric Surgery, Breast Surgery, Section Additional Past Surgical History / Comment(s): (X2); TUMMY TUCK, breast aggumentation , rhinoplasty. Lap Band (ESANIA) 03/27/2021. Past Anesthesia/Blood Transfusion Reactions: Motion Sickness Past Psychological History: Anxiety Smoking Status: Never smoker Past Alcohol Use History: None Reported Past Drug Use History: None Reported - Past Family History Mother Family Medical History: No Reported History Surgical - Exam Vital Signs Temp Pulse Resp BP 97.5 F L 105 H 18 108/78 04/03/21 14:25 04/03/21 14:25 04/03/21 14:25 04/03/21 14:25 - General well developed, well nourished, no distress - Eyes PERRL - ENT normal pinna - Neck no masses - Respiratory normal expansion - Cardiovascular Rhythm: regular - Abdomen Abdomen: soft, non tender Bariatric Assessment & Plan Plan: Status post lap band procedure. Patient is doing well. She will follow-up in one week. Bariatric Checklist Checklist: Plan: Checklist: EGD: 1. Hiatal hernia: 2. H. Pylori: HgbA1c: Vitamin D: Smoking: Primary care physician referral: Dr. Martinez Psychiatry clearance: Cardiology clearance: Sleep study: Diet journal: VTE risk score: VTE risk level: Rehab needs at discharge:
== END ==
LOC: BARWHC3 14:19
PROVIDERS: ATTEND Surgery
DX: Z09 Encounter for follow-up examination after completed treatment for conditions other than malignant neoplasm (principal); F41.9 Anxiety disorder, unspecified; Z98.84 Bariatric surgery status
CPT/HCPCS: 99211

== ENCOUNTER → 2021-04-17 | Outpatient (CLI) | payer BC, OTHER ==
[2021-04-17 14:43] VITALS: BP 115/81; PULSE 100; RESP 18; TEMP 97.7; BMI 36.5
--- NOTE | 2021-05-16 10:21 | P.HPBAR ---
Bariatric H&P - History & Physicial H&P Date: 04/17/21 History & Physicial: Visit/CC: follow up / lap band Patient initial contact: Initial weight: Initial weight in pounds: Height: 5 ft 0.5 in Initial BMI: Last weight: Current weight: 86.183 kg Current weight in pounds: 190.00 Current BMI: 36.5 [place] body weight (based on NIH guidelines): 46.493 kg Excess body weight loss: The patient is a 41 year-old F who presents for Bariatric Assessment. Patient presents today for LAP-BAND follow-up. She is requesting a fill of her band. She currently feels hungry. Past Medical History Past Medical History: Skin Disorder, Sleep Apnea/CPAP/BIPAP, Thyroid Disorder History of Any Multi-Drug Resistant Organisms: None Reported Past Surgical History: Bariatric Surgery, Breast Surgery, Section Additional Past Surgical History / Comment(s): (X2); TUMMY TUCK, breast aggumentation , rhinoplasty. Lap Band (BHESANIA) 03/27/2021. Past Anesthesia/Blood Transfusion Reactions: Motion Sickness Smoking Status: Never smoker - Past Family History Mother Family Medical History: No Reported History Surgical - Exam Vital Signs Temp Pulse Resp BP 97.7 F 100 18 115/81 04/17/21 14:28 04/17/21 14:28 04/17/21 14:28 04/17/21 14:28 - General well developed, well nourished, no distress - Eyes PERRL - ENT normal pinna - Neck no masses - Respiratory normal expansion - Cardiovascular Rhythm: regular - Abdomen Abdomen: soft, non tender Bariatric Assessment & Plan Plan: Patient LAP-BAND was just. She had 2 mL added to the band. She'll follow-up in 4 weeks. Bariatric Checklist Checklist: Plan: Checklist: EGD: 1. Hiatal hernia: 2. H. Pylori: HgbA1c: Vitamin D: Smoking: Primary care physician referral: Dr. Martinez Psychiatry clearance: Cardiology clearance: Sleep study: Diet journal: VTE risk score: VTE risk level: Rehab needs at discharge:
== END ==
LOC: BARWHC3 14:16
PROVIDERS: ATTEND Surgery
DX: E66.01 Morbid (severe) obesity due to excess calories (principal); Z46.51 Encounter for fitting and adjustment of gastric lap band
CPT/HCPCS: 99212

== ENCOUNTER → 2021-05-15 | Outpatient (CLI) | payer BC, OTHER ==
[2021-05-15 14:54] VITALS: BP 108/72; PULSE 94; RESP 18; TEMP 98; BMI 37.0
--- NOTE | 2021-05-15 15:09 | P.HPBAR ---
Bariatric H&P - History & Physicial H&P Date: 05/15/21 History & Physicial: Visit/CC: follow up / lap band Patient initial contact: Initial weight: Initial weight in pounds: Height: 5 ft 0.5 in Initial BMI: Last weight: Current weight: 87.543 kg Current weight in pounds: 193.00 Current BMI: 37.0 [place] body weight (based on NIH guidelines): 46.493 kg Excess body weight loss: The patient is a 41 year-old F who presents for Bariatric Assessment. Patient resents today for [place] follow-up. She is requesting a fill of her band. She currently feels hungry. Past Medical History Past Medical History: Skin Disorder, Sleep Apnea/CPAP/BIPAP, Thyroid Disorder History of Any Multi-Drug Resistant Organisms: None Reported Past Surgical History: Bariatric Surgery, Breast Surgery, Section Additional Past Surgical History / Comment(s): (X2); TUMMY TUCK, breast aggumentation , rhinoplasty. Lap Band (BHESANIA) 03/27/2021. Past Anesthesia/Blood Transfusion Reactions: Motion Sickness Past Psychological History: Anxiety Smoking Status: Never smoker Past Alcohol Use History: None Reported Past Drug Use History: None Reported - Past Family History Mother Family Medical History: No Reported History Surgical - Exam Vital Signs Temp Pulse Resp BP 98 F 94 18 108/72 05/15/21 14:51 05/15/21 14:51 05/15/21 14:51 05/15/21 14:51 - General well developed, well nourished, no distress - Eyes PERRL - ENT normal pinna - Neck no masses - Respiratory normal expansion - Cardiovascular Rhythm: regular - Abdomen Abdomen: soft, non tender Bariatric Assessment & Plan Plan: Morbid obesity. Patient's pain was just. She had 3 mL added to her band. She'll follow-up in 4 weeks. Bariatric Checklist Checklist: Plan: Checklist: EGD: 1. Hiatal hernia: 2. H. Pylori: HgbA1c: Vitamin D: Smoking: Primary care physician referral: Dr. Martinez Psychiatry clearance: Cardiology clearance: Sleep study: Diet journal: VTE risk score: VTE risk level: Rehab needs at discharge:
== END ==
LOC: BARWHC3 14:11
PROVIDERS: ATTEND Surgery
DX: E66.01 Morbid (severe) obesity due to excess calories (principal); F41.9 Anxiety disorder, unspecified; Z46.51 Encounter for fitting and adjustment of gastric lap band; Z68.37 Body mass index [BMI] 37.0-37.9, adult
CPT/HCPCS: 99212

== ENCOUNTER → 2021-06-19 | Outpatient (CLI) | payer BC, OTHER ==
[2021-06-19 15:38] VITALS: BP 95/79; PULSE 93; RESP 16; TEMP 98.7; BMI 35.1
--- NOTE | 2021-06-29 19:38 | P.HPBAR ---
Bariatric H&P - History & Physicial H&P Date: 06/19/21 History & Physicial: Visit/CC: Band f/u Patient initial contact: Initial weight: 89.811 kg Initial weight in pounds: 198.00 Height: 5 ft 0.5 in Initial BMI: 38.0 Last weight: Current weight: 83.007 kg Current weight in pounds: 183.00 Current BMI: 35.1 [place] body weight (based on NIH guidelines): 46.493 kg Excess body weight loss: 15.7% The patient is a 41 year-old F who presents for Bariatric Assessment. Patient presents today for LAP-BAND follow-up. She's had some complaints of GERD. Past Medical History Past Medical History: Skin Disorder, Sleep Apnea/CPAP/BIPAP, Thyroid Disorder History of Any Multi-Drug Resistant Organisms: None Reported Past Surgical History: Bariatric Surgery, Breast Surgery, Section Additional Past Surgical History / Comment(s): (X2); TUMMY TUCK, breast aggumentation , rhinoplasty. Lap Band (BHESANIA) 03/27/2021. Past Anesthesia/Blood Transfusion Reactions: Motion Sickness Past Psychological History: Anxiety Smoking Status: Never smoker Past Alcohol Use History: None Reported Past Drug Use History: None Reported - Past Family History Mother Family Medical History: No Reported History Surgical - Exam Vital Signs Temp Pulse Resp BP 98.7 F 93 16 95/79 06/19/21 15:36 06/19/21 15:36 06/19/21 15:36 06/19/21 15:36 - General well developed, well nourished, no distress - Eyes PERRL - ENT normal pinna - Neck no masses - Respiratory normal expansion - Cardiovascular Rhythm: regular - Abdomen Abdomen: soft, non tender Bariatric Assessment & Plan Plan: Morbid obesity. Patient will be observed. Her GERD is minimal. She'll follow- up in 4 weeks. Bariatric Checklist Checklist: Plan: Checklist: EGD: 1. Hiatal hernia: 2. H. Pylori: HgbA1c: Vitamin D: Smoking: Primary care physician referral: Dr. Martinez Psychiatry clearance: Cardiology clearance: Sleep study: Diet journal: VTE risk score: VTE risk level: Rehab needs at discharge:
== END ==
LOC: BARWHC3 15:14
PROVIDERS: ATTEND Surgery
DX: E66.01 Morbid (severe) obesity due to excess calories (principal); K21.9 Gastro-esophageal reflux disease without esophagitis; F41.9 Anxiety disorder, unspecified; Z68.35 Body mass index [BMI] 35.0-35.9, adult; Z98.84 Bariatric surgery status
CPT/HCPCS: 99211

== ENCOUNTER → 2021-07-03 | Outpatient (CLI) | payer BC, OTHER ==
[2021-07-03 15:14] VITALS: BP 110/76; PULSE 99; RESP 18; TEMP 98; BMI 35.3
--- NOTE | 2021-07-04 12:36 | P.HPBAR ---
Bariatric H&P - History & Physicial H&P Date: 07/03/21 History & Physicial: Visit/CC: follow up / lap band Patient initial contact: Initial weight: 89.811 kg Initial weight in pounds: 198.00 Height: 5 ft 0.5 in Initial BMI: 38.0 Last weight: Current weight: 83.461 kg Current weight in pounds: 184.00 Current BMI: 35.3 [place] body weight (based on NIH guidelines): 46.493 kg Excess body weight loss: 14.6% The patient is a 41 year-old F who presents for Bariatric Assessment. Patient p resents today for LAP-BAND adjustment. She currently feels hungry she requested fill of her LAP-BAND. Past Medical History Past Medical History: Skin Disorder, Sleep Apnea/CPAP/BIPAP, Thyroid Disorder History of Any Multi-Drug Resistant Organisms: None Reported Past Surgical History: Bariatric Surgery, Breast Surgery, Section Additional Past Surgical History / Comment(s): (X2); TUMMY TUCK, breast aggumentation , rhinoplasty. Lap Band (BHESANIA) 03/27/2021. Past Anesthesia/Blood Transfusion Reactions: Motion Sickness Past Psychological History: Anxiety Smoking Status: Never smoker Past Alcohol Use History: None Reported Past Drug Use History: None Reported - Past Family History Mother Family Medical History: No Reported History Surgical - Exam Vital Signs Temp Pulse Resp BP 98 F 99 18 110/76 07/03/21 15:11 07/03/21 15:11 07/03/21 15:11 07/03/21 15:11 - General well developed, well nourished, no distress - Eyes PERRL - ENT normal pinna - Neck no masses - Respiratory normal expansion - Cardiovascular Rhythm: regular - Abdomen Abdomen: soft, non tender Bariatric Assessment & Plan Plan: Patient's LAP-BAND was adjusted. She had 2 mL added to her band. She currently has 5 mL in the band. Bariatric Checklist Checklist: Plan: Checklist: EGD: 1. Hiatal hernia: 2. H. Pylori: HgbA1c: Vitamin D: Smoking: Primary care physician referral: Dr. Martinez Psychiatry clearance: Cardiology clearance: Sleep study: Diet journal: VTE risk score: VTE risk level: Rehab needs at discharge:
== END ==
LOC: BARWHC3 14:56
PROVIDERS: ATTEND Surgery
DX: Z46.51 Encounter for fitting and adjustment of gastric lap band (principal); F41.9 Anxiety disorder, unspecified
CPT/HCPCS: 99212

== ENCOUNTER → 2021-07-06 | Outpatient (CLI) | payer BC, OTHER ==
[2021-07-06 10:03] VITALS: BP 105/75; PULSE 105; TEMP 98.1; BMI 33.6
--- NOTE | 2021-07-06 11:28 | P.HPBAR ---
Bariatric H&P - History & Physicial H&P Date: 07/06/21 History & Physicial: Visit/CC: lap band follow up Patient initial contact: Initial weight: 89.811 kg Initial weight in pounds: 198.00 Height: 5 ft 0.5 in Initial BMI: 38.0 Last weight: Current weight: 79.379 kg Current weight in pounds: 175.00 Current BMI: 33.6 [place] body weight (based on NIH guidelines): 46.493 kg Excess body weight loss: 24.0% The patient is a 41 year-old F who presents for Bariatric Assessment. Patient has complaints dysphagia. She requesting fluid removed from her band. Past Medical History Past Medical History: Skin Disorder, Sleep Apnea/CPAP/BIPAP, Thyroid Disorder History of Any Multi-Drug Resistant Organisms: None Reported Past Surgical History: Bariatric Surgery, Breast Surgery, Section Additional Past Surgical History / Comment(s): (X2); TUMMY TUCK, breast aggumentation , rhinoplasty. Lap Band (BHESANIA) 03/27/2021. Past Anesthesia/Blood Transfusion Reactions: Motion Sickness Past Psychological History: Anxiety Smoking Status: Never smoker Past Alcohol Use History: None Reported Past Drug Use History: None Reported - Past Family History Mother Family Medical History: No Reported History Surgical - Exam Vital Signs Temp Pulse BP 98.1 F 105 H 105/75 07/06/21 10:00 07/06/21 10:00 07/06/21 10:00 - General well developed, well nourished, no distress - Eyes PERRL - ENT normal pinna - Neck no masses - Respiratory normal expansion - Cardiovascular Rhythm: regular - Abdomen Abdomen: soft, non tender Bariatric Assessment & Plan Plan: Patient 1 mL removed from her LAP-BAND. She currently has 6 mL in the band. She will follow-up in 4 weeks. Bariatric Checklist Checklist: Plan: Checklist: EGD: 1. Hiatal hernia: 2. H. Pylori: HgbA1c: Vitamin D: Smoking: Primary care physician referral: Dr. Martinez Psychiatry clearance: Cardiology clearance: Sleep study: Diet journal: VTE risk score: VTE risk level: Rehab needs at discharge:
== END ==
LOC: BARWHC3 09:33
PROVIDERS: ATTEND Surgery
DX: Z46.51 Encounter for fitting and adjustment of gastric lap band (principal); F41.9 Anxiety disorder, unspecified; Z98.84 Bariatric surgery status
CPT/HCPCS: 99212

== ENCOUNTER → 2021-09-04 | Outpatient (CLI) | payer BC, OTHER ==
--- NOTE | 2021-09-04 15:08 | P.HPBAR ---
Bariatric H&P - History & Physicial H&P Date: 09/04/21 History & Physicial: Visit/CC: Patient initial contact: Initial weight: 89.811 kg Initial weight in pounds: Height: Initial BMI: Last weight: 175 Current weight: 169 Current weight in pounds: Current BMI: [place] body weight (based on NIH guidelines): Excess body weight loss: The patient is a 41 year-old F who presents for Bariatric Assessment. Patient presents today for bariatric follow. She's requesting a fill of her LAP-BAND. She currently feels hungry. Past Medical History Past Medical History: Skin Disorder, Sleep Apnea/CPAP/BIPAP, Thyroid Disorder History of Any Multi-Drug Resistant Organisms: None Reported Past Surgical History: Bariatric Surgery, Breast Surgery, Section Additional Past Surgical History / Comment(s): (X2); TUMMY TUCK, breast aggumentation , rhinoplasty. Lap Band (BHESANIA) 03/27/2021. Past Anesthesia/Blood Transfusion Reactions: Motion Sickness Smoking Status: Never smoker - Past Family History Mother Family Medical History: No Reported History Surgical - Exam - General well developed, well nourished, no distress - Eyes PERRL - ENT normal pinna, normal nares - Neck no masses - Respiratory normal expansion - Cardiovascular Rhythm: regular - Abdomen Abdomen: soft, non tender Bariatric Assessment & Plan Plan: Patient LAP-BAND was adjusted. She is 0.5 mL added to the band. She currently 6.5 mL in the band. She'll follow-up in 4 weeks. Bariatric Checklist Checklist: Plan: Checklist: EGD: 1. Hiatal hernia: 2. H. Pylori: HgbA1c: Vitamin D: Smoking: Primary care physician referral: Dr. Martinez Psychiatry clearance: Cardiology clearance: Sleep study: Diet journal: VTE risk score: VTE risk level: Rehab needs at discharge:
[2021-09-04 15:18] VITALS: BP 124/75; PULSE 96; RESP 16; TEMP 98.1; BMI 33.0
== END ==
LOC: BARWHC3 15:00
PROVIDERS: ATTEND Surgery
DX: Z46.51 Encounter for fitting and adjustment of gastric lap band (principal); Z98.84 Bariatric surgery status
CPT/HCPCS: 99212

== ENCOUNTER → 2022-08-06 | Outpatient (CLI) | payer OTHER ==
[2022-08-06 14:58] VITALS: BP 107/71; PULSE 111; TEMP 98.2; BMI 24.3
--- NOTE | 2022-08-06 15:05 | P.HPBAR ---
Bariatric H&P - History & Physicial H&P Date: 08/06/22 History & Physicial: Visit/CC: lap band Patient initial contact: Initial weight: 89.811 kg Initial weight in pounds: 198.00 Height: 5 ft 0.5 in Initial BMI: 38.0 Last weight: Current weight: 57.606 kg Current weight in pounds: 127.00 Current BMI: 24.3 [place] body weight (based on NIH guidelines): 46.493 kg Excess body weight loss: 74.3% The patient is a 42 year-old F who presents for Bariatric Assessment. She presents today for LAP-BAND follow-up. She has some complaints of GERD and dysphagia. Past Medical History Past Medical History: Skin Disorder, Sleep Apnea/CPAP/BIPAP, Thyroid Disorder History of Any Multi-Drug Resistant Organisms: None Reported Past Surgical History: Bariatric Surgery, Breast Surgery, Section Additional Past Surgical History / Comment(s): (X2); TUMMY TUCK, breast aggumentation , rhinoplasty. Lap Band (GORGE) 03/27/2021. Past Anesthesia/Blood Transfusion Reactions: Motion Sickness Past Psychological History: Anxiety Smoking Status: Never smoker Past Alcohol Use History: None Reported Past Drug Use History: None Reported - Past Family History Mother Family Medical History: No Reported History Surgical - Exam Vital Signs Temp Pulse BP 98.2 F 111 H 107/71 08/06/22 14:51 08/06/22 14:51 08/06/22 14:51 - General well developed, well nourished, no distress - Eyes PERRL - ENT normal pinna - Neck no masses - Respiratory normal expansion - Cardiovascular Rhythm: regular - Abdomen Abdomen: soft, non tender Bariatric Assessment & Plan Plan: Patient's LAP-BAND was adjusted. She had 2 mL removed the band. She currently is 4.5 mL remaining in the band. She'll follow-up in 4 weeks. Bariatric Checklist Checklist: Plan: Checklist: EGD: 1. Hiatal hernia: 2. H. Pylori: HgbA1c: Vitamin D: Smoking: Primary care physician referral: Dr. Martinez Psychiatry clearance: Cardiology clearance: Sleep study: Diet journal: VTE risk score: VTE risk level: Rehab needs at discharge:
== END ==
LOC: BARWHC3 14:38
PROVIDERS: ATTEND Surgery
DX: Z48.815 Encounter for surgical aftercare following surgery on the digestive system (principal); E66.01 Morbid (severe) obesity due to excess calories; Z98.84 Bariatric surgery status; E07.9 Disorder of thyroid, unspecified; G47.30 Sleep apnea, unspecified; Z99.89 Dependence on other enabling machines and devices; Z68.24 Body mass index [BMI] 24.0-24.9, adult; Z79.890 Hormone replacement therapy
CPT/HCPCS: 99212

== ENCOUNTER → 2023-02-04 | Outpatient (CLI) | payer OTHER ==
[2023-02-04 14:32] VITALS: BP 100/67; PULSE 52; TEMP 98.5; BMI 24.2
--- NOTE | 2023-02-26 08:23 | P.HPBAR ---
Bariatric H&P - History & Physicial H&P Date: 02/04/23 History & Physicial: Visit/CC: lap band Patient initial contact: Initial weight: 89.811 kg Initial weight in pounds: 198.00 Height: 5 ft 0.5 in Initial BMI: 38.0 Last weight: Current weight: 57.153 kg Current weight in pounds: 126.00 Current BMI: 24.2 [place] body weight (based on NIH guidelines): 46.493 kg Excess body weight loss: 75.3% The patient is a 43 year-old F who presents for Bariatric Assessment. Patient resents today for LAP-BAND adjustment. She wants to have some fluid removed from her band. Patient has had some complaints of GERD. Past Medical History Past Medical History: Skin Disorder, Sleep Apnea/CPAP/BIPAP, Thyroid Disorder History of Any Multi-Drug Resistant Organisms: None Reported Past Surgical History: Bariatric Surgery, Breast Surgery, Section Additional Past Surgical History / Comment(s): (X2); TUMMY TUCK, breast aggumentation , rhinoplasty. Lap Band (BHESANIA) 03/27/2021. Past Anesthesia/Blood Transfusion Reactions: Motion Sickness Smoking Status: Never smoker - Past Family History Mother Family Medical History: No Reported History Surgical - Exam Vital Signs Temp Pulse BP 98.5 F 52 L 100/67 02/04/23 14:09 02/04/23 14:09 02/04/23 14:09 - General well developed, well nourished, no distress - Eyes PERRL - ENT normal pinna - Neck no masses - Abdomen Abdomen: soft, non tender Bariatric Assessment & Plan Plan: 0.5 mL removed from her band. She currently has 6 mL in the band. Patient was able to water without difficulty. She'll follow-up in 4 weeks. Bariatric Checklist Checklist: Plan: Checklist: EGD: 1. Hiatal hernia: 2. H. Pylori: HgbA1c: Vitamin D: Smoking: Primary care physician referral: Dr. Martinez Psychiatry clearance: Cardiology clearance: Sleep study: Diet journal: VTE risk score: VTE risk level: Rehab needs at discharge:
== END ==
LOC: BARWHC3 13:48
PROVIDERS: ATTEND Surgery
DX: E66.01 Morbid (severe) obesity due to excess calories (principal); Z46.51 Encounter for fitting and adjustment of gastric lap band; E07.9 Disorder of thyroid, unspecified; Z68.24 Body mass index [BMI] 24.0-24.9, adult
CPT/HCPCS: 99212

== ENCOUNTER → 2023-05-06 | Outpatient (CLI) | payer OTHER ==
[2023-05-06 15:07] VITALS: BP 95/62; PULSE 102; TEMP 97.8; BMI 27.4
--- NOTE | 2023-05-22 09:00 | P.HPBAR ---
Bariatric H&P - History & Physicial H&P Date: 05/06/23 History & Physicial: Visit/CC: lap band Patient initial contact: Initial weight: 89.811 kg Initial weight in pounds: 198.00 Height: 5 ft 0.5 in Initial BMI: 38.0 Last weight: Current weight: 64.864 kg Current weight in pounds: 143.00 Current BMI: 27.4 [place] body weight (based on NIH guidelines): 46.493 kg Excess body weight loss: 57.5% The patient is a 43 year-old F who presents for Bariatric Assessment. Patient presents today for LAP-BAND adjustment. She is requesting a fill of her band. She currently feels hungry. Past Medical History Past Medical History: Skin Disorder, Sleep Apnea/CPAP/BIPAP, Thyroid Disorder History of Any Multi-Drug Resistant Organisms: None Reported Past Surgical History: Bariatric Surgery, Breast Surgery, Section Additional Past Surgical History / Comment(s): (X2); TUMMY TUCK, breast aggumentation , rhinoplasty. Lap Band (BHESANIA) 03/27/2021. Past Anesthesia/Blood Transfusion Reactions: Motion Sickness Past Psychological History: Anxiety Smoking Status: Never smoker Past Alcohol Use History: None Reported Past Drug Use History: None Reported - Past Family History Mother Family Medical History: No Reported History Surgical - Exam Vital Signs Temp Pulse BP 97.8 F 102 H 95/62 05/06/23 15:04 05/06/23 15:04 05/06/23 15:04 - General well developed, well nourished, no distress - Eyes PERRL - ENT normal pinna - Neck no masses - Respiratory normal expansion - Cardiovascular Rhythm: regular - Abdomen Abdomen: soft, non tender Bariatric Assessment & Plan Plan: Patient LAP-BAND was adjusted. She had 0.2 mL added to the band. She currently has 6.2 mL in the band. She'll follow-up in 4 weeks. Bariatric Checklist Checklist: Plan: Checklist: EGD: 1. Hiatal hernia: 2. H. Pylori: HgbA1c: Vitamin D: Smoking: Primary care physician referral: Dr. Martinez Psychiatry clearance: Cardiology clearance: Sleep study: Diet journal: VTE risk score: VTE risk level: Rehab needs at discharge:
== END ==
LOC: BARWHC3 14:49
PROVIDERS: ATTEND Surgery
DX: E66.01 Morbid (severe) obesity due to excess calories (principal); G47.30 Sleep apnea, unspecified; E07.9 Disorder of thyroid, unspecified; Z46.51 Encounter for fitting and adjustment of gastric lap band; Z98.84 Bariatric surgery status; Z68.27 Body mass index [BMI] 27.0-27.9, adult; Z79.890 Hormone replacement therapy
CPT/HCPCS: 99212

== ENCOUNTER → 2023-06-03 | Outpatient (CLI) | payer OTHER ==
[2023-06-03 09:53] VITALS: BP 92/69; PULSE 81; TEMP 98.1; BMI 27.2
--- NOTE | 2023-06-10 14:43 | P.HPBAR ---
Bariatric H&P - History & Physicial H&P Date: 06/03/23 History & Physicial: Visit/CC: lap band Patient initial contact: Initial weight: 89.811 kg Initial weight in pounds: 198.00 Height: 5 ft 0.5 in Initial BMI: 38.0 Last weight: Current weight: 64.41 kg Current weight in pounds: 142.00 Current BMI: 27.2 [place] body weight (based on NIH guidelines): 46.493 kg Excess body weight loss: 58.6% The patient is a 43 year-old F who presents for Bariatric Assessment. patient presents today for Lap-Band adjustment. She is currently hungry. She is requesting a fill. Past Medical History Past Medical History: Skin Disorder, Sleep Apnea/CPAP/BIPAP, Thyroid Disorder History of Any Multi-Drug Resistant Organisms: None Reported Past Surgical History: Bariatric Surgery, Breast Surgery, Section Additional Past Surgical History / Comment(s): (X2); TUMMY TUCK, breast aggumentation , rhinoplasty. Lap Band (BHESANIA) 03/27/2021. Past Anesthesia/Blood Transfusion Reactions: Motion Sickness Past Psychological History: Anxiety Smoking Status: Never smoker Past Alcohol Use History: None Reported Past Drug Use History: None Reported - Past Family History Mother Family Medical History: No Reported History Surgical - Exam Vital Signs Temp Pulse BP 98.1 F 81 92/69 06/03/23 09:35 06/03/23 09:35 06/03/23 09:35 - General well developed, well nourished, no distress - Eyes PERRL - Abdomen Abdomen: soft, non tender Bariatric Assessment & Plan Plan: Patient Lap-Band adjusted. She had 0.2 cc Ativan. She currently 6.4 cc in the band. She will follow-up in 4 weeks. Bariatric Checklist Checklist: Plan: Checklist: EGD: 1. Hiatal hernia: 2. H. Pylori: HgbA1c: Vitamin D: Smoking: Primary care physician referral: Dr. Martinez Psychiatry clearance: Cardiology clearance: Sleep study: Diet journal: VTE risk score: VTE risk level: Rehab needs at discharge:
== END ==
LOC: BARWHC3 09:24
PROVIDERS: ATTEND Surgery
DX: E66.01 Morbid (severe) obesity due to excess calories (principal); G47.30 Sleep apnea, unspecified; E07.9 Disorder of thyroid, unspecified; Z46.51 Encounter for fitting and adjustment of gastric lap band; Z98.84 Bariatric surgery status; Z87.2 Personal history of diseases of the skin and subcutaneous tissue; Z68.27 Body mass index [BMI] 27.0-27.9, adult; Z79.890 Hormone replacement therapy
CPT/HCPCS: 99212

== ENCOUNTER → 2023-11-04 | Outpatient (CLI) | payer OTHER ==
[2023-11-04 10:35] VITALS: BP 106/72; PULSE 107; TEMP 98.3; BMI 26.0
--- NOTE | 2023-11-04 12:51 | P.HPBAR ---
Bariatric H&P - History & Physicial H&P Date: 11/04/23 History & Physicial: Visit/CC: lap band Patient initial contact: Initial weight: 89.811 kg Initial weight in pounds: 198.00 Height: 5 ft 0.5 in Initial BMI: 38.0 Last weight: Current weight: 61.462 kg Current weight in pounds: 135.50 Current BMI: 26.0 [place] body weight (based on NIH guidelines): 46.493 kg Excess body weight loss: 65.4% The patient is a 43 year-old F who presents for Bariatric Assessment. Patient presents today for LAP-BAND adjustment she is currently hungry. She is gained 17 pounds her last visit. Past Medical History Past Medical History: Skin Disorder, Sleep Apnea/CPAP/BIPAP, Thyroid Disorder History of Any Multi-Drug Resistant Organisms: None Reported Past Surgical History: Bariatric Surgery, Breast Surgery, Section Additional Past Surgical History / Comment(s): (X2); TUMMY TUCK, breast aggumentation , rhinoplasty. Lap Band (BHESANIA) 03/27/2021. Past Anesthesia/Blood Transfusion Reactions: Motion Sickness Smoking Status: Never smoker - Past Family History Mother Family Medical History: No Reported History Surgical - Exam Vital Signs Temp Pulse BP 98.3 F 107 H 106/72 11/04/23 10:17 11/04/23 10:17 11/04/23 10:17 - General well developed, well nourished, no distress - Eyes PERRL - ENT normal pinna - Neck no masses - Respiratory normal expansion - Cardiovascular Rhythm: regular - Abdomen Abdomen: soft, non tender Bariatric Assessment & Plan Plan: Patient's LAP-BAND was just. She had 3 mL added to the band. She'll follow-up in 4 weeks. Bariatric Checklist Checklist: Plan: Checklist: EGD: 1. Hiatal hernia: 2. H. Pylori: HgbA1c: Vitamin D: Smoking: Primary care physician referral: Dr. Martinez Psychiatry clearance: Cardiology clearance: Sleep study: Diet journal: VTE risk score: VTE risk level: Rehab needs at discharge:
== END ==
LOC: BARWHC3 09:55
PROVIDERS: ATTEND Surgery
DX: E66.01 Morbid (severe) obesity due to excess calories (principal); Z98.84 Bariatric surgery status; Z68.26 Body mass index [BMI] 26.0-26.9, adult; Z46.51 Encounter for fitting and adjustment of gastric lap band
CPT/HCPCS: 43999

== ENCOUNTER → 2023-11-25 | Outpatient (CLI) | payer OTHER ==
[2023-11-25 12:19] VITALS: BP 104/76; PULSE 92; TEMP 97.8; BMI 27.6
--- NOTE | 2023-11-28 13:01 | P.HPBAR ---
Bariatric H&P - History & Physicial H&P Date: 11/25/23 History & Physicial: Visit/CC: lap band Patient initial contact: Initial weight: 89.811 kg Initial weight in pounds: 198.00 Height: 5 ft 0.5 in Initial BMI: 38.0 Last weight: Current weight: 65.317 kg Current weight in pounds: 144.00 Current BMI: 27.6 [place] body weight (based on NIH guidelines): 46.493 kg Excess body weight loss: 56.5% The patient is a 43 year-old F who presents for Bariatric Assessment.patient presents today for follow-up. She's requesting a fill of her band. She states she is hungry can eat anything. Past Medical History Past Medical History: Skin Disorder, Sleep Apnea/CPAP/BIPAP, Thyroid Disorder History of Any Multi-Drug Resistant Organisms: None Reported Past Surgical History: Bariatric Surgery, Breast Surgery, Section Additional Past Surgical History / Comment(s): (X2); TUMMY TUCK, breast aggumentation , rhinoplasty. Lap Band (CLAUDIAESANIA) 03/27/2021. Past Anesthesia/Blood Transfusion Reactions: Motion Sickness Past Psychological History: Anxiety Smoking Status: Never smoker Past Alcohol Use History: None Reported Past Drug Use History: None Reported - Past Family History Mother Family Medical History: No Reported History Surgical - Exam Vital Signs Temp Pulse BP 97.8 F 92 104/76 11/25/23 11:44 11/25/23 11:44 11/25/23 11:44 - General well developed, well nourished, no distress - Eyes PERRL - ENT normal pinna - Neck no masses - Respiratory normal expansion - Cardiovascular Rhythm: regular - Abdomen Abdomen: soft, non tender Bariatric Assessment & Plan Plan: the patient had 1 mL added to her band. She'll follow-up in 4 weeks. Bariatric Checklist Checklist: Plan: Checklist: EGD: 1. Hiatal hernia: 2. H. Pylori: HgbA1c: Vitamin D: Smoking: Primary care physician referral: Dr. Martinez Psychiatry clearance: Cardiology clearance: Sleep study: Diet journal: VTE risk score: VTE risk level: Rehab needs at discharge:
== END ==
LOC: BARWHC3 09:26
PROVIDERS: ATTEND Surgery
DX: Z46.51 Encounter for fitting and adjustment of gastric lap band (principal); Z98.84 Bariatric surgery status
CPT/HCPCS: 43999

== ENCOUNTER → 2023-12-09 | Outpatient (CLI) | payer OTHER ==
[2023-12-09 12:54] VITALS: BP 124/84; PULSE 73; RESP 14; TEMP 98.2; BMI 27.4
== END ==
LOC: BARWHC3 09:54
PROVIDERS: ATTEND Surgery
DX: E66.01 Morbid (severe) obesity due to excess calories (principal); Z98.84 Bariatric surgery status; Z46.51 Encounter for fitting and adjustment of gastric lap band; Z90.3 Acquired absence of stomach [part of]; Z68.27 Body mass index [BMI] 27.0-27.9, adult
CPT/HCPCS: 43999

== ENCOUNTER → 2023-12-23 | Outpatient (CLI) | payer OTHER ==
[2023-12-23 11:19] VITALS: BP 100/69; PULSE 80; RESP 14; TEMP 98; BMI 25.2
--- NOTE | 2023-12-24 11:52 | P.HPBAR ---
Bariatric H&P - History & Physicial H&P Date: 12/23/23 History & Physicial: Visit/CC: feeling of restriction Patient initial contact: Initial weight: 89.811 kg Initial weight in pounds: 198.00 Height: 5 ft 0.5 in Initial BMI: 38.0 Last weight: Current weight: 59.647 kg Current weight in pounds: 131.50 Current BMI: 25.2 [place] body weight (based on NIH guidelines): 46.493 kg Excess body weight loss: 69.6% The patient is a 43 year-old F who presents for Bariatric Assessment.patient p resents today for bariatric follow-up. She feels her band may be too tight. She's requesting reduction in her fill volume. Past Medical History Past Medical History: Skin Disorder, Sleep Apnea/CPAP/BIPAP, Thyroid Disorder History of Any Multi-Drug Resistant Organisms: None Reported Past Surgical History: Bariatric Surgery, Breast Surgery, Section Additional Past Surgical History / Comment(s): (X2); TUMMY TUCK, breast aggumentation , rhinoplasty. Lap Band (BHESANIA) 03/27/2021. Past Anesthesia/Blood Transfusion Reactions: Motion Sickness Past Psychological History: Anxiety Smoking Status: Never smoker Past Alcohol Use History: None Reported Past Drug Use History: None Reported - Past Family History Mother Family Medical History: No Reported History Surgical - Exam Vital Signs Temp Pulse Resp BP 98.0 F 80 14 100/69 12/23/23 10:36 12/23/23 10:36 12/23/23 10:36 12/23/23 10:36 - General well developed, well nourished, no distress - Eyes PERRL - ENT normal pinna - Neck no masses - Respiratory normal expansion - Cardiovascular Rhythm: regular - Abdomen Abdomen: soft, non tender Bariatric Assessment & Plan Plan: patient LAP-BAND was adjusted. She had 0.5 mL removed the band. She'll follow- up in 4 weeks. Bariatric Checklist Checklist: Plan: Checklist: EGD: 1. Hiatal hernia: 2. H. Pylori: HgbA1c: Vitamin D: Smoking: Primary care physician referral: Dr. Martinez Psychiatry clearance: Cardiology clearance: Sleep study: Diet journal: VTE risk score: VTE risk level: Rehab needs at discharge:
== END ==
LOC: BARWHC3 09:45
PROVIDERS: ATTEND Surgery
DX: Z46.51 Encounter for fitting and adjustment of gastric lap band (principal); Z98.84 Bariatric surgery status; Z90.3 Acquired absence of stomach [part of]
CPT/HCPCS: 43999

== ENCOUNTER → 2024-10-19 | Outpatient (CLI) | payer OTHER ==
[2024-10-19 09:05] VITALS: BP 96/86; PULSE 81; RESP 16; TEMP 98
--- NOTE | 2024-10-19 10:48 | P.HPBAR ---
Bariatric H&P - History & Physicial H&P Date: 10/19/24 History & Physicial: Visit/CC: f/u lap band Patient initial contact: Initial weight: 89.811 kg Initial weight in pounds: 198.00 Height: 5 ft 5 in Initial BMI: Last weight: Current weight: 56.699 kg Current weight in pounds: Current BMI: [place] body weight (based on NIH guidelines): Excess body weight loss: The patient is a 44 year-old F who presents for Bariatric Assessment. Presents today for bariatric follow-up. Patient is requesting fluid to remove her band. Past Medical History Past Medical History: Skin Disorder, Sleep Apnea/CPAP/BIPAP, Thyroid Disorder History of Any Multi-Drug Resistant Organisms: None Reported Past Surgical History: Bariatric Surgery, Breast Surgery, Section Additional Past Surgical History / Comment(s): (X2); TUMMY TUCK, breast aggumentation , rhinoplasty. Lap Band (BHESANIA) 03/27/2021. Past Anesthesia/Blood Transfusion Reactions: Motion Sickness Smoking Status: Never smoker - Past Family History Mother Family Medical History: No Reported History Surgical - Exam Vital Signs Temp Pulse Resp BP 98.0 F 81 16 96/86 10/19/24 08:55 10/19/24 08:55 10/19/24 08:55 10/19/24 08:55 - General well developed, well nourished, no distress - Eyes PERRL - ENT normal pinna - Neck no masses - Respiratory normal expansion - Cardiovascular Rhythm: regular - Abdomen Abdomen: soft, non tender Bariatric Assessment & Plan Plan: Patient Lap-Band had 0.2 cc removed. She will follow-up in 4 weeks. She currently is 5.3 in the band. Bariatric Checklist Checklist: Plan: Checklist: EGD: 1. Hiatal hernia: 2. H. Pylori: HgbA1c: Vitamin D: Smoking: Primary care physician referral: Dr. Martinez Psychiatry clearance: Cardiology clearance: Sleep study: Diet journal: VTE risk score: VTE risk level: Rehab needs at discharge:
== END ==
LOC: BARWHC3 08:32
PROVIDERS: ATTEND Surgery
DX: Z46.51 Encounter for fitting and adjustment of gastric lap band (principal)
CPT/HCPCS: 43999

== ENCOUNTER → 2024-12-28 | Outpatient (CLI) | payer OTHER ==
[2024-12-28 09:55] VITALS: BP 109/74; PULSE 58; RESP 16; TEMP 98.2; BMI 23.3
--- NOTE | 2025-01-05 16:38 | P.HPBAR ---
Bariatric H&P - History & Physicial H&P Date: 12/28/24 History & Physicial: Visit/CC: f/u Patient initial contact: Initial weight: 89.811 kg Initial weight in pounds: 198.00 Height: 5 ft 3 in Initial BMI: 35.0 Last weight: Current weight: 59.874 kg Current weight in pounds: 132.00 Current BMI: 23.3 [place] body weight (based on NIH guidelines): 52.27 kg Excess body weight loss: 79.7% The patient is a 44 year-old F who presents for Bariatric Assessment. this is a 44-year-old female who presents today for Lap-Band adjustment. Patient is currently hungry. She is requesting a fill of her band. Past Medical History Past Medical History: Skin Disorder, Sleep Apnea/CPAP/BIPAP, Thyroid Disorder History of Any Multi-Drug Resistant Organisms: None Reported Past Surgical History: Bariatric Surgery, Breast Surgery, Section Additional Past Surgical History / Comment(s): (X2); TUMMY TUCK, breast aggumentation , rhinoplasty. Lap Band (BHESANIA) 03/27/2021. Past Anesthesia/Blood Transfusion Reactions: Motion Sickness Smoking Status: Never smoker - Past Family History Mother Family Medical History: No Reported History Surgical - Exam Vital Signs Temp Pulse Resp BP 98.2 F 58 L 16 109/74 12/28/24 09:46 12/28/24 09:46 12/28/24 09:46 12/28/24 09:46 - General well developed, well nourished, no distress - Eyes PERRL - ENT normal pinna - Neck no masses - Respiratory normal expansion - Cardiovascular Rhythm: regular - Abdomen Abdomen: soft, non tender Bariatric Assessment & Plan Plan: Patient Lap-Band was adjusted. She has 0.1 cc out of the band. She will follow-up in 4 weeks. Bariatric Checklist Checklist: Plan: Checklist: EGD: 1. Hiatal hernia: 2. H. Pylori: HgbA1c: Vitamin D: Smoking: Primary care physician referral: Dr. Martinez Psychiatry clearance: Cardiology clearance: Sleep study: Diet journal: VTE risk score: VTE risk level: Rehab needs at discharge:
== END ==
LOC: BARWHC3 09:40
PROVIDERS: ATTEND Surgery
DX: E66.01 Morbid (severe) obesity due to excess calories (principal); Z68.23 Body mass index [BMI] 23.0-23.9, adult
CPT/HCPCS: 43999

== ENCOUNTER → 2025-02-22 | Outpatient (CLI) | payer OTHER ==
[2025-02-22 13:56] VITALS: BMI 29.0
--- NOTE | 2025-02-25 16:01 | P.HPBAR ---
Bariatric H&P - History & Physicial H&P Date: 02/22/25 History & Physicial: Visit/CC: lap band follow up Patient initial contact: Initial weight: 89.811 kg Initial weight in pounds: 198.00 Height: 5 ft 0.5 in Initial BMI: 38.0 Last weight: Current weight: 68.492 kg Current weight in pounds: 151.00 Current BMI: 29.0 [place] body weight (based on NIH guidelines): 46.65 kg Excess body weight loss: 49.3% The patient is a 45 year-old F who presents for Bariatric Assessment. patient presents today for bariatric follow-up. Patient requesting refill of her Lap- Band. She is currently hungry. Past Medical History Past Medical History: Skin Disorder, Sleep Apnea/CPAP/BIPAP, Thyroid Disorder History of Any Multi-Drug Resistant Organisms: None Reported Past Surgical History: Bariatric Surgery, Breast Surgery, Section Additional Past Surgical History / Comment(s): (X2); TUMMY TUCK, breast aggumentation , rhinoplasty. Lap Band (BHESANIA) 03/27/2021. Past Anesthesia/Blood Transfusion Reactions: Motion Sickness Past Psychological History: Anxiety Smoking Status: Never smoker Past Alcohol Use History: None Reported Past Drug Use History: None Reported - Past Family History Mother Family Medical History: No Reported History Surgical - Exam - General well nourished, no distress - Eyes PERRL - ENT normal pinna, normal nares - Neck no masses - Respiratory normal expansion - Cardiovascular Rhythm: regular - Abdomen Abdomen: soft, non tender Bariatric Assessment & Plan Plan: Patient Lap-Band was adjusted. She had 0.2 cc out of the band. She will follow-up in 4 weeks. Bariatric Checklist Checklist: Plan: Checklist: EGD: 1. Hiatal hernia: 2. H. Pylori: HgbA1c: Vitamin D: Smoking: Primary care physician referral: Dr. Martinez Psychiatry clearance: Cardiology clearance: Sleep study: Diet journal: VTE risk score: VTE risk level: Rehab needs at discharge:
== END ==
LOC: BARWHC3 09:33
PROVIDERS: ATTEND Surgery
DX: E66.01 Morbid (severe) obesity due to excess calories (principal); Z68.29 Body mass index [BMI] 29.0-29.9, adult
CPT/HCPCS: 43999